=== PATIENT | female | born 1995 | race Caucasian/White ===

== ENCOUNTER 2020-04-14 08:00 | Outpatient (CLI) | payer BC ==
[2020-04-14 21:32] LABS: TRICHOMONAS VAGINALIS DNA NEGATIVE (NEGATIVE)
== END 2020-04-14 23:59 | disposition home or self-care (01) ==
LOC: LAB.R 08:00
PROVIDERS: ATTEND Nurse Practitioner Obstetrics & Gynecology
DX: Z11.3 Encounter for screening for infections with a predominantly sexual mode of transmission (principal)
CPT/HCPCS: 87491; 87591; 87661